=== PATIENT | male | born 1950 | race African-American/Black ===

== ENCOUNTER 2022-12-16 12:48 | Emergency (ER) | payer MEDICARE, MEDICAID ==
[~2022-12-16] VITALS: Ht 195.6 cm; Wt 68.0 kg
[~2022-12-16 12:48] MED LIST: CYAN10003 SL; INSU100I28 SQ; METF-414 MT
[2022-12-16 12:57] VITALS: O2SAT 93
[2022-12-16 16:33] LABS: BASOPHILS % 0.2 % (0.0-2.0); EOSINOPHILS % 1.9 % (0.0-5.0); HEMATOCRIT. 43.5 % (42.0-52.0); HEMOGLOBIN. 14.2 g/dL (14.0-18.0); LYMPHOCYTES % 20.1 % (20.0-50.0); MEAN CORPUSCULAR HEMOGLOBIN 27.7 pg (28.0-32.0); MEAN CORPUSCULAR HGB CONC 32.6 g/dL (31.0-37.0); MEAN CORPUSCULAR VOLUME 84.8 fL (80.0-94.0); MEAN PLATELET VOLUME 8.9 fl (7.4-10.4); NEUTROPHILS % 66.8 % (40.0-76.0); PLATELET 189 x1000/uL (130-400); RED BLOOD CELL COUNT 5.13 mill/uL (4.7-6.1); RED CELL DISTRIBUTION WIDTH 14.1 % (11.6-14.6); WHITE BLOOD COUNT 10.8 x1000/uL (4.5-11.0)
[2022-12-16 16:44] LABS: CHLORIDE 105 mEq/L (98-107); INDEX HEMOLYSI 1 (1-3); INDEX ICTERIC 1 (1-4); INDEX LIPEMIC 1 (1-3); POTASSIUM 4.5 mEq/L (3.5-5.1); SODIUM 140 mEq/L (136-145)
[2022-12-16 16:45] LABS: CALCIUM 8.9 mg/dL (8.5-10.1)
[2022-12-16 16:49] LABS: INR 1.1; PROTHROMBIN TIME 11.4 sec (9.6-11.0)
[2022-12-16 16:54] LABS: ALANINE AMINOTRANSFERASE 22 IU/L (13-61); ALBUMIN 3.5 g/dL (3.4-5.0); ASPARTATE AMINOTRANSFERASE 26 IU/L (15-37); BILIRUBIN TOTAL 0.7 mg/dL (0.1-1.0); CARBON DIOXIDE 29 mEq/L (21-32); CREATININE 0.8 mg/dL (0.6-1.3); GLUCOSE 86 mg/dL (70-105); PROTEIN TOTAL 7.3 g/dL (6.0-8.3); TROPONIN I HIGH SENSITIVITY 47 ng/L (<78); UREA NITROGEN BLOOD 13 mg/dL (7-21)
[2022-12-16] MEDS ORDERED: AMLO5TAB4 MT (17:35)
[2022-12-16 18:25] VITALS: BP 149/71; PULSE 99; RESP 15; TEMP 98.7
== END 2022-12-16 18:25 | disposition home or self-care (01) ==
LOC: ER 12:48
DX: I10 Essential (primary) hypertension (principal); E11.9 Type 2 diabetes mellitus without complications; J44.1 Chronic obstructive pulmonary disease with (acute) exacerbation; R51.9 Headache, unspecified; Z88.0 Allergy status to penicillin; Z91.018 Allergy to other foods; Z98.890 Other specified postprocedural states; Z86.59 Personal history of other mental and behavioral disorders
CPT/HCPCS: 36415; 71045; 80053; 84484; 85025; 93005; 99285